=== PATIENT | male | born 1960 | race Caucasian/White ===

== ENCOUNTER → 2024-03-28 | Outpatient (CLI) | payer MEDICARE ==
--- NOTE | 2024-03-28 17:27 | MR ---
EXAMINATION TYPE: MR shoulder LT wo con DATE OF EXAM: 03/28/2024 COMPARISON: None HISTORY: Left shoulder pain, injury 4 mos ago. TECHNIQUE: Multiplanar, multisequence imaging of the left shoulder is performed without contrast. FINDINGS: There is no bone contusion or fracture. There is a small glenohumeral joint effusion. 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 There is superior subluxation of the glenohume ral joint secondary to full-thickness complete rotator cuff tear of the supraspinatus, infraspinatus and subscapularis tendons with retraction of all 3 musculotendinous junctions. The biceps tendon is normal in signal intensity and position within the bicipital groove. The biceps anchor is attached. Grossly the cartilaginous labrum intact. IMPRESSION: 1. Complete full-thickness rotator cuff tears involving the supraspinatus, infraspinatus and subscapu daniele tendons with retraction of the musculotendinous junctions. 2. Marked degenerative changes of the AC joint. 3. Glenohumeral joint effusion. 4. Normal biceps tendon
== END | disposition home or self-care (01) ==
LOC: RADMRIMAIN 13:05
PROVIDERS: ATTEND Orthopaedic Surgery
DX: M75.122 Complete rotator cuff tear or rupture of left shoulder, not specified as traumatic (principal); M19.012 Primary osteoarthritis, left shoulder

== ENCOUNTER → 2024-05-02 | Day surgery (SDC) | payer MEDICARE ==
[2024-04-30 08:49] VITALS: BMI 32.8
--- NOTE | 2024-05-01 08:37 | P.HPOR ---
History of Present Illness H&P Date: 05/01/24 Chief Complaint: Left shoulder pain and weakness Patient is a 64-year-old [id number] retired gentleman who presents with left shoulder pain and weakness after falling off a ladder in November of this year. He's having pain with overhead activity and at night. He notes significant weakness. He denies previous problems. Review of Systems Per HPI Past Medical History Past Medical History: Atrial Fibrillation, Diabetes Mellitus, Hyperlipidemia, Hypertension, Prostate Disorder Additional Past Medical History / Comment(s): "sleep apnea" per - tests once but doesn't use CPAP, BPH & pre diabetes per Dr. Beth's clearance History of Any Multi-Drug Resistant Organisms: None Reported Additional Past Surgical History / Comment(s): cardioversion, colonoscopy Past Anesthesia/Blood Transfusion Reactions: No Reported Reaction Smoking Status: Never smoker - Past Family History Father Family Medical History: Cancer Additional Family Medical History / Comment(s): of brain tumor age 46 Sister(s) Family Medical History: Cancer Additional Family Medical History / Comment(s): of lung cancer age early 40's Medications and Allergies Home Medications Medication Instructions Recorded Confirmed Type Benazepril [Lotensin] 10 mg PO DAILY 04/30/24 04/30/24 History Metoprolol Succinate [Metoprolol 25 mg PO DAILY 04/30/24 04/30/24 History Succinate ER] Rivaroxaban [Xarelto] 20 mg PO DAILY 04/30/24 04/30/24 History Rosuvastatin Calcium 20 mg PO Q48H 04/30/24 04/30/24 History Allergies Allergy/AdvReac Type Severity Reaction Status Date / Time No Known Allergies Allergy Verified 04/30/24 08:08 Physical Examination - Shoulder left Appearance: effusion Tenderness with palpation: anterior, bicipital groove Pain: with abduction, with forward flexion ROM: forward flexion: 120 degrees ROM: internal rotation: lower lumbar ROM: external rotation: 0 degrees Crepitus with motion: Yes Strength: abduction: 3/5 Strength: external rotation: 3/5 Tests: internal impingement tests: positive, external impingment tests: positive Results The patient a well-developed well-nourished male 5 foot 11, 238 pounds of in the more habitus. HEENT exam is nonfocal. He is tender about the left shoulder anterior subacromial space. He has moderate crepitus. Has limited active range of motion. Passive range of motion is full. His distal neurovascular was present intact in the left upper extremity. - Diagnostic results Shoulder MRI: image reviewed ([place] the left shoulder shows evidence of full- thickness tears involving the supraspinatus, infraspinatus, and subscapularis. There is some retraction. No definite atrophy is noted.) Assessment and Plan Assessment: Acute left rotator cuff tearmassive Plan: I talked to the patient at length regarding his condition along with treatment options. At this point he is quite symptomatic having both pain and weakness after this acute injury. After a thorough discussion he opts to proceed with surgery. We'll plan to proceed with left shoulder arthroscopy with possible subacromial decompression, rotator cuff debridement versus repair. We will also assess the e biceps and consider tenotomy if needed. Risks and benefits were discussed at length in layman's terms. We will likely perform that as an outpatient procedure.
[~2024-05-02] MED LIST: DEXAMETHASONE SOD PHOSPHATE 4 MG/ML 1 ML VIAL ONE; HYDROmorphone 0.5 MG/0.5 ML SYRINGE IVP PRN; LIDOCAINE 1% (10MG/ML) FOR IV START INTRADERMA PRN; LIDOCAINE 1% INJ 10MG/ML (20 ML MDV) ONE; MIDAZOLAM 2 MG/2 ML VIAL IV PRN; PHENYLEPHRINE 10 MG/ML VIAL ONE; PROPOFOL 10 MG/ML 20 ML VIAL IV ONE; ROPIVACAINE 5 MG/ML 30 ML VIAL ONE; SODIUM CHLORIDE 0.9% (PF) 10 ML VIAL ONE; SUCCINYLCHOLINE CHLORIDE 200 MG/10 ML VIAL IV ONE; fentaNYL (PF) 50 MCG/ML 2 ML AMP IV PRN
[2024-05-02] MEDS: IV FLUID CONTINUATION 1,000 ML IV ONE (10:10)
[2024-05-02 10:16] VITALS: TEMP 97.2
[2024-05-02 10:24] LABS: Glucose,Whole Blood 106 mg/dL (70-110)
[2024-05-02] MEDS: LACTATED RINGERS 1,000 ML IV SCH (10:35)
[2024-05-02] MEDS: ONDANSETRON 4 MG/2 ML VIAL IVP ONE (10:35)
[2024-05-02] MEDS: DEXAMETHASONE SOD PHOSPHATE 4 MG/ML 1 ML VIAL IV ONE (10:35)
[2024-05-02] MEDS: fentaNYL (PF) 50 MCG/ML 2 ML AMP IVP ONE (10:45)
[2024-05-02] MEDS: MIDAZOLAM 2 MG/2 ML VIAL IVP ONE (10:45)
[2024-05-02] MEDS: LACTATED RINGERS 1,000 ML IV ONE (12:29)
--- NOTE | 2024-05-02 12:41 | P.OP ---
Date of Procedure: 05/02/24 Preoperative Diagnosis: Left rotator cuff tearsymptomatic Postoperative Diagnosis: Retracted 5 cm left rotator cuff tear, high-grade partial-thickness tear long head of the biceps Procedure(s) Performed: Left shoulder arthroscopic subacromial decompression/biceps tenotomy/rotator cuff repair Implants: Arthrex 4.75 mm swivel lock anchor x 3, 5.5 mm swivel lock anchor x 1 Anesthesia: MERI, regional Surgeon: Tai Flores Pigskin Trimmer #1: Paul Alonso Estimated Blood Loss (ml): 10 Pathology: none sent Condition: stable Disposition: PACU Indications for Procedure: The patient is a 64-year-old male who presents with progressive left shoulder pain and weakness after a recent injury despite attempted conservative measures. A discussion of the risks and benefits of operative intervention was made with the patient. He opted to proceed. Operative risks include infection, neurovascular injury, development blood clots, possible tendon rerupture, possible postoperative stiffness, and possible need for subsequent procedures was discussed. Informed consent was obtained. Operative Findings: As below Description of Procedure: The patient was brought to the operating room, and after induction of general anesthesia was placed in a beachchair position. A preoperative interscalene block was placed for postoperative analgesia. I examined the left shoulder. There was no gross block to passive motion or gross glenohumeral instability. The left upper extremity was prepped and draped in normal fashion. The bony outlines the acromion, distal clavicle, and coracoid process were outlined with a skin marker. The glenohumeral joint was inflated with 50 mL of saline utilizing a spinal needle from posterior approach. A posterior portal was made through a 5 mm skin incision 1 cm medial and inferior to the posterior lateral border time. A blunt trocar was used to easily into the joint. Diagnostic arthroscopy was performed. An anterior portal was made just lateral to the coracoid process entering the joint above the subscapularis tendon. The subscapularis tendon appeared to be intact. Anterior labrum was intact. The inferior recess was inspected. The posterior labrum was intact. There was a high-grade partial-thickness tear of the long head of the biceps involving interarticular portion along with medial subluxation. It was elected to proceed with release at this point. This was released from the superior labrum with electrocautery and was allowed to retract to the bicipital groove. On inspection the rotator cuff, a full-thickness tear involving the supraspinatus and infraspinatus was noted with retraction to the mid humeral head. The arthroscope was placed into the subacromial space. A lateral portal was made 2 centimeters inferior to the anterior lateral border of the acromion. The rotator cuff was then mobilized with 2 traction sutures. This was then brought back to the greater tuberosity. The soft tissue on the undersurface of the acromion was debrided with a motorized shaver and electrocautery clearly defining the anterior medial and lateral borders as well as the distal clavicle. An anterior inferior acromioplasty was performed with a motorized nathaniel starting anterolateral, then extending this posteriorly, then extending this medially. I converted to a flat acromion and this was verified in the posterior and lateral viewing portals. The greater tuberosity was lightly decorticating with a shaver down to a bleeding bony surface. An accessory superior lateral portal was made just off the lateral edge of the acromion for anchor placement. 2 anchors were then placed just off the articular surface with the appropriate starting awl. 4.75 mm anchors preloaded with #2 fiber tape were placed. Good purchase was obt ained. These fiber tapes were then passed the rotator cuff with a scorpion suture passer. A lateral row was created crisscrossing these tapes. A 4.75 mm swivel lock anchor was placed posterior lateral utilizing crisscrossing fiber tapes along with one of the traction sutures. Good purchase was obtained. A 5.5 mm swivel lock with was placed anterior lateral again crisscrossing the fiber tapes and utilizing the anterior traction suture. Final arthroscopic view showed adequate compression at the footprint. The arthroscope was then removed. The portals were closed with simple 3-0 nylon sutures. A sterile dressing was applied in addition to an abductor brace. The patient was then awoken from general anesthesia and transferred to recovery room in good condition. Blood loss was estimated at 10 mL. No complications were incurred. Sponge and needle counts were correct in the case. Paul EMNCHACA assisted and the major components of the case to include arm positioning, anchor placement, and rotator cuff repair.
[2024-05-02 13:10] LABS: Glucose,Whole Blood 115 mg/dL (70-110)
[2024-05-02 13:56] VITALS: BP 122/81; PULSE 66; RESP 14
--- NOTE | 2024-05-02 16:14 | P.ANPRN ---
Procedure Note - Anesthesia - Nerve Block Performed Left Interscalene Single Time Out Performed: Yes Date of Procedure: 05/02/24 Procedure Start Time: 10:45 Procedure Stop Time: 10:53 Location of Patient: PreOp Indication: Acute Post-Operative Pain, Requested by Surgeon Sedation Type: Sedate with meaningful contact maintained Preparation: Sterile Prep Position: Supine Needle Types: Pajunk Needle Gauge: 21 Ultrasound used to visualize needle placement: Yes Ultrasound used to observe medication spread: Yes Injectate: 0.5% Ropivacaine (see comment for volume) (25 ml + 4 mg De xamethasone) Blood Aspirated: No Pain Paresthesia on Injection Noted: No Resistance on Injection: Normal Image Stored and Saved: Yes Events: Uneventful and Well Tolerated
== END | disposition home or self-care (01) ==
LOC: OR 09:38
PROVIDERS: ATTEND Orthopaedic Surgery
DX: M75.102 Unspecified rotator cuff tear or rupture of left shoulder, not specified as traumatic (principal); I48.91 Unspecified atrial fibrillation; I10 Essential (primary) hypertension; G89.18 Other acute postprocedural pain; G47.30 Sleep apnea, unspecified; E78.5 Hyperlipidemia, unspecified; E11.9 Type 2 diabetes mellitus without complications; Z79.01 Long term (current) use of anticoagulants; Z79.899 Other long term (current) drug therapy
CPT/HCPCS: 64415; 29826; 29827; 29828; C1713 ×2; C1894; J2250; J0330; J1100; J0690; J2405; J2001; J3010; J2795; J2704; J2371

== ENCOUNTER 2024-12-09 07:19 | Day surgery (SDC) | payer MEDICARE ==
[2024-12-09] MEDS ORDERED: LACTATED RINGERS 1,000 ML IV SCH (07:35)
[2024-12-09] MEDS ORDERED: LIDOCAINE 1% (10MG/ML) FOR IV START INTRADERMA PRN (07:35)
[2024-12-09 07:44] VITALS: TEMP 97.9
[2024-12-09] MEDS: SODIUM CHLORIDE 0.9% 1,000 ML IV ONE (07:47)
[2024-12-09 07:56] LABS: Glucose,Whole Blood 127 mg/dL (70-110)
[2024-12-09] MEDS ORDERED: PROPOFOL 10 MG/ML 20 ML VIAL IV ONE (08:16)
[2024-12-09] MEDS ORDERED: LIDOCAINE 1% INJ 10MG/ML (20 ML MDV) ONE (08:16)
--- NOTE | 2024-12-09 08:37 | P.PCN ---
Date of Procedure: 12/09/24 Procedure(s) Performed: BRIEF HISTORY: Patient is a 64-year-old pleasant white male scheduled for an elective colonoscopy as a part of evaluation of prior history of colon polyps PROCEDURE PERFORMED: Colonoscopy with snare polypectomy. PREOPERATIVE DIAGNOSIS: History of colon polyps. IV sedation per Anesthesia. PROCEDURE: After informed consent was obtained, the patient, was brought into the endoscopy unit. IV sedation was administered by Anesthesia under continuous monitoring. Digital rectal examination was normal. Initially the Olympus CF-160 flexible video colonoscope was then inserted in the rectum, gradually advanced into the cecum without any difficulty. Careful examination was performed as the scope was gradually being withdrawn. Ileocecal valve and the appendiceal orifice were visualized and appeared normal. Prep was excellent. Mucosa of the cecum, ascending colon, appeared normal. The transverse colon there was a 6 mm polyp removed by cold snare polypectomy. In the descending colon there was a 4 mm polyp removed by cold snare polypectomy. Rest of the transverse colon, de scending colon, sigmoid colon, and rectum appeared normal. Katter sigmoid diverticulosis. Retroflexion was performed in the rectum and no lesions were seen. The patient tolerated the procedure well. IMPRESSION: 6 millimeter transverse colon polyp status post cold snare polypectomy 4 mm descending colon polyp status post cold snare polypectomy Scattered sigmoid diverticulosis. RECOMMENDATIONS: Findings of this examination were discussed with the patient as well as his family. He was advised to follow-up with the biopsy results. If the biopsy reveals adenoma he can have repeat colonoscopy in 5 years..
[2024-12-09 09:26] VITALS: BP 126/78; PULSE 90; RESP 18
== END 2024-12-09 09:20 | disposition home or self-care (01) ==
LOC: ORWHC2ENDO 07:19
PROVIDERS: ATTEND Internal Medicine Gastroenterology
DX: D12.3 Benign neoplasm of transverse colon (principal); D12.4 Benign neoplasm of descending colon; K57.30 Diverticulosis of large intestine without perforation or abscess without bleeding; I10 Essential (primary) hypertension; E78.5 Hyperlipidemia, unspecified; I48.91 Unspecified atrial fibrillation; E11.9 Type 2 diabetes mellitus without complications; G47.33 Obstructive sleep apnea (adult) (pediatric); N40.0 Benign prostatic hyperplasia without lower urinary tract symptoms; Z79.899 Other long term (current) drug therapy
CPT/HCPCS: 45385; J2003; J2704; 88305